=== PATIENT | female | born 1970 | race Caucasian/White ===

== ENCOUNTER 2018-05-29 08:06 | Emergency (ER) | payer OTHER ==
[~2018-05-29] VITALS: Ht 154.9 cm; Wt 118.2 kg
[~2018-05-29 08:06] MED LIST: LEVO25TA9 PO; OMEP10 PO; SERT100T12 PO; VITAD400 PO
[2018-05-29] MEDS ORDERED: HYDR25TA PO (08:20)
[2018-05-29] MEDS ORDERED: KETOROLAC TROMETHAMINE 60 MG/2 ML VIAL IM ONE (08:30)
[2018-05-29 10:10] VITALS: BP 125/68
== END 2018-05-29 10:32 | disposition home or self-care (01) ==
LOC: EMS 08:07
DX: S39.012A Strain of muscle, fascia and tendon of lower back, initial encounter (principal); E11.9 Type 2 diabetes mellitus without complications; E03.9 Hypothyroidism, unspecified; F32.9 Major depressive disorder, single episode, unspecified; E66.9 Obesity, unspecified; Z68.42 Body mass index [BMI] 45.0-49.9, adult; W01.0XXA Fall on same level from slipping, tripping and stumbling without subsequent striking against object, initial encounter; Y93.89 Activity, other specified; Y92.89 Other specified places as the place of occurrence of the external cause; Y99.8 Other external cause status
CPT/HCPCS: 72100; 81025; 96372; 99284; J1885

== ENCOUNTER 2019-08-19 18:15 | Emergency (ER) | payer OTHER ==
[~2019-08-19] VITALS: Ht 154.9 cm; Wt 113.6 kg
[2019-08-19 18:15] VITALS: BP 142/96
[~2019-08-19 18:15] MED LIST changes: +HYDR25TA PO
[2019-08-19 18:41] LABS: GLUCOSE,POINT OF CARE 139 MG/DL (70-110)
[2019-08-19] MEDS ORDERED: HydrOXYzine PAMOATE 25 MG CAPSULE PO ONE (20:30)
== END 2019-08-19 20:54 | disposition home or self-care (01) ==
LOC: EMS 18:17
DX: B35.6 Tinea cruris (principal); E11.9 Type 2 diabetes mellitus without complications; E03.9 Hypothyroidism, unspecified; Z48.01 Encounter for change or removal of surgical wound dressing; Z90.49 Acquired absence of other specified parts of digestive tract; Z79.899 Other long term (current) drug therapy